=== PATIENT | female | born 1965 | race Caucasian/White ===

== ENCOUNTER → 2017-08-06 | Outpatient (CLI) | payer BC, OTHER | LOC: HYPER 07:04 | DX: T81.89XA Other complications of procedures, not elsewhere classified, initial encounter (principal); M86.9 Osteomyelitis, unspecified; I73.9 Peripheral vascular disease, unspecified; I47.1 Supraventricular tachycardia; F17.200 Nicotine dependence, unspecified, uncomplicated; Y92.89 Other specified places as the place of occurrence of the external cause; Y83.8 Other surgical procedures as the cause of abnormal reaction of the patient, or of later complication, without mention of misadventure at the time of the procedure ==

== ENCOUNTER → 2017-08-18 | Outpatient (CLI) | payer BC, OTHER | LOC: HYPER 08-13 14:13 | DX: T81.89XD Other complications of procedures, not elsewhere classified, subsequent encounter (principal); I73.9 Peripheral vascular disease, unspecified; M86.9 Osteomyelitis, unspecified; I47.1 Supraventricular tachycardia; Z89.029 Acquired absence of unspecified finger(s); F17.200 Nicotine dependence, unspecified, uncomplicated; Y83.8 Other surgical procedures as the cause of abnormal reaction of the patient, or of later complication, without mention of misadventure at the time of the procedure ==

== ENCOUNTER → 2017-09-23 | Outpatient (CLI) | payer BC, OTHER | LOC: HYPER 09-01 08:44 | DX: T81.89XD Other complications of procedures, not elsewhere classified, subsequent encounter (principal); M86.9 Osteomyelitis, unspecified; I73.9 Peripheral vascular disease, unspecified; F17.200 Nicotine dependence, unspecified, uncomplicated; Y83.8 Other surgical procedures as the cause of abnormal reaction of the patient, or of later complication, without mention of misadventure at the time of the procedure ==